=== PATIENT | male | born 1960 | race Caucasian/White ===

== ENCOUNTER 2019-02-05 20:52 | Emergency (ER) | payer OTHER ==
[~2019-02-05] VITALS: Ht 193 cm; Wt 134.5 kg
[2019-02-05] MEDS ORDERED: PRINIVIL10 M1 PO (21:03)
[2019-02-05] MEDS ORDERED: COUMADIN 1010 MG/TAB PO (21:04)
[2019-02-05] MEDS ORDERED: WARFARIN SODIUM10 MG PO (21:04)
[2019-02-05] MEDS ORDERED: LANTUS SOLOS100 U/ML SQ (21:05)
[2019-02-05] MEDS ORDERED: INSULIN HUMA100 U/ML SQ (21:05)
[2019-02-05] MEDS ORDERED: PROTONIX TR40 M1 PO (21:05)
[2019-02-05 22:30] VITALS: BP 159/97
== END 2019-02-05 22:30 | disposition home or self-care (01) ==
LOC: ED 20:52
DX: R07.81 Pleurodynia (principal); I25.10 Atherosclerotic heart disease of native coronary artery without angina pectoris; E11.9 Type 2 diabetes mellitus without complications; I10 Essential (primary) hypertension; Z86.711 Personal history of pulmonary embolism; Z79.4 Long term (current) use of insulin; Z79.01 Long term (current) use of anticoagulants; Z87.891 Personal history of nicotine dependence; X50.1XXA Overexertion from prolonged static or awkward postures, initial encounter; Y92.39 Other specified sports and athletic area as the place of occurrence of the external cause